=== PATIENT | female | born 1980 | race Caucasian/White ===

== ENCOUNTER → 2020-08-10 | Outpatient (CLI) | payer OTHER ==
[2020-08-10 11:06] VITALS: BP 110/69
--- NOTE | 2020-08-10 11:06 | Cardiology Stress Test Report ---
Stress Test Report Date of Procedure/Referring: Date of Procedure: Aug 10, 2020 PCP Georgina Flynn MD Admitting Physician No,Local Physician Indications: Palpitation Baseline Heart Rate: 63 Baseline Blood Pressure: Blood Pressure Systolic: 110 Blood Pressure Diastolic: 69 Baseline EKG: Baseline EKG: NSR Summary/Conclusion: Summary: In summary, the patient started exercising with a baseline heart rate, blood pressure and EKG mentioned above Patient was able to exercise for a total of 7 minutes on Willis protocol, METs 8.5 Maximum heart rate 182 Maximum blood pressure 142/64 Stress EKG, Minimal nondiagnostic changes Recovery EKG , Return to baseline Conclusion: 1. Good exercise tolerance for a total of 7 minutes on Willis protocol, 8.5 METs, achieving 99 percent of maximum expected heart rate 2. Minimal nondiagnostic EKG changes with exercise returned to baseline during recovery 3. No arrhythmia was noted GEORGINA FLYNN MD Aug 10, 2020 11:06
== END ==
LOC: CARD 09:43
PROVIDERS: ATTEND Internal Medicine Cardiovascular Disease
DX: R06.09 Other forms of dyspnea (principal); I10 Essential (primary) hypertension; R00.2 Palpitations; R42 Dizziness and giddiness
CPT/HCPCS: 93017; 93306

== ENCOUNTER → 2020-08-22 | Outpatient (CLI) | payer OTHER ==
[2020-08-22] VITALS (18 sets, daily range): BP systolic 92–113; BP diastolic 60–85
[~2020-08-22] MED LIST: ATROPINE INJECTION 1 MG/10 ML SYR (ABBOTT) ONE; NS IV 1000 ML 1,000 ML IV SCH; NS IV 1000 ML 1,000 ML ONE
--- NOTE | 2020-08-22 11:42 | Cardiology Tilt Table Test ---
Cardiology-Tilt Table Test Tilt Table Test Date 08/22/20 Baseline Vitals Vital Signs Date Time Temp Pulse Resp B/P (MAP) Pulse Ox O2 Delivery O2 Flow Rate FiO2 08/22/20 09:50 76 107/81 (90) 100 Vital Signs VS - Last 72 Hours, by Label 08/22/20 08/22/20 08/22/20 08/22/20 09:50 10:23 10:25 10:27 Pulse 76 81 87 81 B/P (MAP) 107/81 (90) 109/79 (89) 113/75 (88) 102/78 (86) Pulse Ox 100 100 99 100 08/22/20 08/22/20 08/22/20 08/22/20 10:30 10:31 10:33 10:35 Pulse 93 94 65 94 B/P (MAP) 108/78 (88) 111/85 (94) 111/74 (86) 109/74 (86) 08/22/20 08/22/20 08/22/20 08/22/20 10:36 10:37 10:39 10:40 Pulse 105 121 120 B/P (MAP) 107/72 (84) 108/60 (76) 103/77 (86) 92/64 (73) Pulse Ox 99 98 98 08/22/20 08/22/20 08/22/20 08/22/20 10:41 10:43 10:45 10:51 Pulse 131 134 114 125 B/P (MAP) 93/71 (78) 100/61 (74) 106/76 (86) 103/75 (84) Pulse Ox 97 98 08/22/20 08/22/20 10:55 10:56 Pulse 118 73 B/P (MAP) 102/74 (83) 105/76 (86) Pulse Ox 99 Patient was tilted to 75 degrees for [10] minutes, then returned to supine position, given [2] sublingual nitroglycerin tablets, then tilted again to 75 degrees for [15] minutes. During test, patient was: symptomatic (dizziness and lightheadedness briefly during stage 2) In Conclusion;: Negative Tilt Table Test Patient instructed to increase fluid and salt intake. This is Joyce Quinteros PA-C, as a scribe for JOYCE Rodriguez August 22, 2020 11:42
== END ==
LOC: CARD 10:00
PROVIDERS: ATTEND Physician Assistant
DX: R55 Syncope and collapse (principal)
CPT/HCPCS: 93660